=== PATIENT | female | born 1985 | race American Indian/Alaskan Native ===

== ENCOUNTER 2020-03-03 16:54 | Emergency (ER) | payer SELFPAY ==
[2020-03-03 17:09] VITALS: BP 116/101
--- NOTE | 2020-03-03 17:26 | Emergency Department Report ---
Chief Complaint: Skin Rash Stated Complaint: POISION MARY - HPI History of Present Illness: 34-year-old -[place] female presents to the emergency room for poison mary to her face and right lower leg since . Patient states she has been taking Benadryl every 4 hours using aloe leaf and calamine lotion. - Exam Physical Exam: 34-year-old -[place] female presents to the emergency room complaining planing of poison mary to her face and right lower leg. Patient states that it started when she was working out in the yard pulling weeds. Patient reports she is been taking Benadryl every 4 hours with not much relief. Patient states she is also used some calamine lotion as well as aloe vera gel. Patient denies any shortness of breath or chest pain no trouble seeing no nausea no vomiting. MSE screening note: Focused history and physical exam performed. Due to findings the following was ordered: 34-year-old -[place] female presents to the emergency room for poison mary to her face and right lower leg since . Patient states she has been taking Benadryl every 4 hours using aloe leaf and calamine lotion. Discussed with patient I will refer her to urgent care that is open today. Went to inform patient she is nowhere to be found. ED Disposition for MSE Disposition: MED SCREENING EXAM-LEFT Is pt being admited?: No Does the pt Need Aspirin: No Condition: Stable Additional Instructions: Discussed with patient I will refer her to urgent care that is open today. Went to inform patient she is nowhere to be found.
== END 2020-03-03 18:27 | disposition left against medical advice (07) ==
LOC: ED 16:54
DX: R21 Rash and other nonspecific skin eruption (principal); Z53.21 Procedure and treatment not carried out due to patient leaving prior to being seen by health care provider
CPT/HCPCS: 99282